=== PATIENT | male | born 1985 | race African-American/Black ===

== ENCOUNTER 2019-10-16 15:36 | Emergency (ER) | payer SELFPAY ==
[~2019-10-16] VITALS: Ht 180.3 cm; Wt 85.3 kg
[2019-10-16 15:52] VITALS: BP 123/72
[2019-10-16] MEDS ORDERED: Methocarbamol 750mg tab ORAL ONE (16:15)
[2019-10-16] MEDS ORDERED: Ketorolac 30mg Inj IM ONE (16:15)
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
[2019-10-16] MEDS ORDERED: LIDODERM700 M1 TOPIC (17:04)
[2019-10-16] MEDS ORDERED: IBU800 MG PO (17:04)
[2019-10-16] MEDS ORDERED: ROBAXIN-500MG ORAL (17:04)
[2019-10-16 17:20] VITALS: BP 123/72
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
== END 2019-10-16 17:20 | disposition home or self-care (01) ==
LOC: EMR 17:02
DX: S43.401A Unspecified sprain of right shoulder joint, initial encounter (principal); S13.4XXA Sprain of ligaments of cervical spine, initial encounter; S33.5XXA Sprain of ligaments of lumbar spine, initial encounter; V43.52XA Car driver injured in collision with other type car in traffic accident, initial encounter; Y92.410 Unspecified street and highway as the place of occurrence of the external cause
CPT/HCPCS: 73030; 96372; 99283; J1885